=== PATIENT | female | born 1950 | race Caucasian/White ===

== ENCOUNTER → 2022-12-31 10:11 | Outpatient (BNVA) | payer OTHER, MEDICAID, SELFPAY | PROVIDERS: PCP Family Medicine; Visit Provider Anesthesiology Pain Medicine | DX: R10.2 Pelvic and perineal pain (principal); Z98.1 Arthrodesis status | CPT/HCPCS: 72170 ==

== ENCOUNTER → 2023-06-15 11:24 | Outpatient (BNVA) | payer OTHER, MEDICAID, SELFPAY | PROVIDERS: PCP Family Medicine; Visit Provider Family Medicine | DX: M19.90 Unspecified osteoarthritis, unspecified site (principal); R10.9 Unspecified abdominal pain; B88.0 Other acariasis; M54.50 Low back pain, unspecified; G89.29 Other chronic pain; F32.0 Major depressive disorder, single episode, mild; I10 Essential (primary) hypertension; G62.9 Polyneuropathy, unspecified; J44.9 Chronic obstructive pulmonary disease, unspecified; F11.90 Opioid use, unspecified, uncomplicated; F17.200 Nicotine dependence, unspecified, uncomplicated; Z71.6 Tobacco abuse counseling; M65.311 Trigger thumb, right thumb; M65.312 Trigger thumb, left thumb; Z79.899 Other long term (current) drug therapy | CPT/HCPCS: 81000 ==

== ENCOUNTER → 2023-09-25 16:01 | Outpatient (BNVA) | payer OTHER, MEDICAID, SELFPAY | PROVIDERS: PCP Family Medicine; Visit Provider Family Medicine | DX: I10 Essential (primary) hypertension (principal) | CPT/HCPCS: 80053; 80061; 84443; 85025 ==

== ENCOUNTER → 2023-11-06 13:03 | Outpatient (BNVA) | payer MEDICARE, MEDICAID, SELFPAY | PROVIDERS: PCP Family Medicine; Referring Provider Dermatology; Visit Provider Orthopaedic Surgery | DX: M54.9 Dorsalgia, unspecified (principal); M48.062 Spinal stenosis, lumbar region with neurogenic claudication; G89.29 Other chronic pain; M54.50 Low back pain, unspecified | CPT/HCPCS: 72100; 99204 ==

== ENCOUNTER 2023-12-15 13:46 | Outpatient (CLI) | payer MEDICARE, MEDICAID, SELFPAY ==
--- NOTE | 2023-12-15 14:00 | MR_ITS ---
WS: [id number] MRI LUMBAR SPINE NONCONTRAST TECHNIQUE: Sagittal T1, T2 and STIR imaging. Axial T1 and T2 imaging. CLINICAL INFORMATION: back pain COMPARISON: None. FINDINGS: Mild central canal stenosis cervical spine secy imaging at C5-C6. 5 nonrib-bearing lumbar vertebral bodies on the prior radiograph. Nonrib-bearing vertebral bodies con sidered L1-L5 for the purposes of this dictation. Only 11 thoracic type vertebral bodies if counting performed from the craniocervical junction. Pedicle screw fixation L4-S1 with interconnecting rods. Disc bulging worse at L3-4. L1-L2: Mild facet arthropathy. Spinal canal and foramen are patent. L2-L3: Slight retrolisthesis. Mild annular bulging. Moderate facet arthropathy. Mild canal and forame n are patent. L3-L4: Disc bulge with moderate central canal stenosis. Impingement traversing L4 nerve roots bilater ally. Moderate facet arthropathy with small facet effusions. Mild bilateral foraminal narrowing. Slig ht retrolisthesis L3 on L4 L4-L5: Mild annular bulging. Laminectomy defects. Pedicle screw fixation. Spinal canal and foramen ar e patent. L5-S1: Pedicle screw fixation. Laminectomy defects. Spinal canal and foramen are patent. Visualized pelvic bony structures: Normal. Paravertebral soft tissues: Normal. IMPRESSION: 1. Prior pedicle screw fixation L4-S1. 2. Moderate central canal stenosis L3-4 due to central disc bulging in combination with facet arthro nadya and ligamentum flavum hypertrophy. Impingement of traversing L4 nerve roots bilaterally. Mild b ilateral foraminal narrowing. 3. Spinal canal decompression at L4-L5 and L5-S1.
== END 2023-12-15 13:47 | disposition home or self-care (01) ==
LOC: RAD 13:47
PROVIDERS: PCP Family Medicine; Visit Provider Orthopaedic Surgery
DX: M48.061 Spinal stenosis, lumbar region without neurogenic claudication (principal); M51.36 Other intervertebral disc degeneration, lumbar region; G89.29 Other chronic pain
CPT/HCPCS: 72148

== ENCOUNTER → 2024-01-14 14:10 | Outpatient (BNVA) | payer MEDICARE, MEDICAID, SELFPAY | PROVIDERS: PCP Family Medicine; Visit Provider Orthopaedic Surgery | DX: M54.9 Dorsalgia, unspecified (principal); M48.062 Spinal stenosis, lumbar region with neurogenic claudication | CPT/HCPCS: 80053; 81001; 85025; 99214 ==

== ENCOUNTER → 2024-01-22 09:33 | Outpatient (BNVA) | payer MEDICARE, MEDICAID, SELFPAY | PROVIDERS: PCP Family Medicine; Visit Provider Family Medicine | DX: Z01.818 Encounter for other preprocedural examination (principal) | CPT/HCPCS: 81003; 93005 ==

== ENCOUNTER 2024-02-05 09:17 | Day surgery (SDC) | payer MEDICARE, MEDICAID, SELFPAY ==
[2024-02-05] VITALS (11 sets, daily range): BP systolic 104–181; BP diastolic 55–110; PULSE 77–98; RESP 12–20; TEMP 36.1–36.8; O2SAT 93–100; BMI 32.1
--- NOTE | 2024-02-05 10:11 | ANES.PREANE2 ---
Pre-Anesthetic Assessment Height/Weight: Height 1.55 m Weight 77.111 kg Temp Pulse Resp BP O2 Del Method 98.2 F 77 18 181/94 Room Air 02/05/24 09:34 02/05/24 09:34 02/05/24 09:34 02/05/24 09:34 02/05/24 09:57 Preop Diagnosis: Lumbar stenosis with neurogenic claudication Operation Date: 02/05/24 10:55 Proposed Procedures p L3-4 Lumbar Spine Decompression(Right) - Cachorro Og, Familial anesthetic complications: None Was Beta Raphael taken within 24 hours: N/A Was Clonidine taken within 24 hours: N/A Last intake: Intake Last Liquid Date 02/04/24 Last Liquid Time 23:00 Last Solid Date 02/04/24 Last Solid Time 23:00 Social Tobacco and No alcohol Exam alert, oriented x 3, clear to auscultation bilaterally and regular rate & rhythm Airway Mallampati: Class I Dentition: chipped Pulmonary Chronic Obstructive Pulmonary Disease CV/HEM Hypertension Anesthetic Plan ASA status: 3 Anesthesia: General Risk of > 500 ml blood loss (7ml/kg in children): No Medications/Allergies Home Medications Medication Instructions Recorded Confirmed Last Taken Type albuterol sulfate 0.63 mg/3 mL 0.63 mg inhalation QID PRN sob 11/17/22 02/05/24 02/04/24 History solution for nebulization cetirizine 10 mg capsule (All Day 10 mg PO DAILY PRN allergy 11/17/22 02/05/24 02/04/24 Rx Allergy (cetirizine)) symptoms #30 caps olopatadine 0.1 % eye drops 1 drp ophthalmic (eye) BID #5 mL 11/17/22 02/05/24 02/05/24 Rx omega 3-yec-jgm-fish oil 60 mg-90 1 cap PO DAILY 03/02/23 02/05/24 01/21/24 History mg-500 mg capsule (Fish Oil) triamcinolone acetonide 0.5 % 1 applic topical DAILY PRN skin 06/15/23 02/05/24 Unknown Rx topical cream #15 grams losartan 100 mg tablet 100 mg PO DAILY #90 tabs 08/28/23 02/05/24 02/04/24 Rx fluticasone propionate 50 2 spray intranasal DAILY #16 grams 0102/05/24 02/04/24 Rx mcg/actuation nasal spray,suspension (Flonase Allergy Relief) albuterol sulfate 90 mcg/actuation See Rx Instructions .Route 11/13/23 02/05/24 Unknown Rx aerosol inhaler .COMPLEX #8.5 ea lidocaine 4 % topical patch 1 patch topical DAILY PRN pain #30 11/17/23 02/05/24 02/04/24 Rx (Salonpas (lidocaine)) ea amlodipine 5 mg tablet 5 mg PO DAILY #90 tabs 12/02/23 02/05/24 02/04/24 Rx hydrocodone 10 mg-acetaminophen 1 tab PO Q8H PRN pain 30 days #90 01/11/24 02/05/24 02/04/24 Rx 325 mg tablet tabs tiotropium 2.5 mcg-olodaterol 2.5 2 puff inhalation DAILY #4 grams 01/13/24 02/05/24 02/05/24 Rx mcg/actuation mist for inhalation (Stiolto Respimat) Allergies Allergy/AdvReac Type Severity Reaction Status Date / Time aspirin Allergy Intermediate hives Verified 01/22/24 09:39 bupropion [From Wellbutrin] Allergy Intermediate facial rash Verified 01/22/24 09:39 shrimp Allergy Intermediate hives Verified 01/22/24 09:39 PFSH Anesthesia Medical History COPD (chronic obstructive pulmonary disease) Bulging discs Hypertension Rib cage dysfunction Surgical History History of back surgery Family History Sister Cancer unknown Mother Cancer breast Sister Cancer breast Other Diabetes Hyperlipidemia Hypertension Lung disease Denies family history of CAD (coronary artery disease) Clotting disorder Dementia Psychiatric illness Chronic kidney disease (CKD) Anesthesia complication Bleeding disorder Stroke Social History Smoking and tobacco/nicotine status: current every day tobacco/nicotine user cigarettes Packs smoked per day: 0.75 Alcohol intake: never Substance/Drug Use: never Lives independently: Yes Marital status: / Number of children: 5 Current occupational status: disabled Special alex needs: No Agree to transfusion: Yes Data Anesthesia Cardiac Studies: No Data to Display
--- NOTE | 2024-02-05 10:22 | W.PM.OPSUD ---
Surgery/Procedure H&P Update DATE OF PROCEDURE: February 05, 2024 DATE H&P PERFORMED: 01/22/24 H&P UPDATE INFORMATION: I have reviewed H&P completed within last 30 days, I have examined patient prior to procedure and No changes to prior documentation PREOP DIAGNOSIS: Lumbar stenosis with neurogenic claudication PLANNED PROCEDURE: Operation Date: 02/05/24 10:55 Proposed Procedures p L3-4 Lumbar Spine Decompression(Right) - Cachorro Og DO
[2024-02-05] MEDS: sodium chloride 0.9% 1,000 ML 30 ML IV (10:23)
[2024-02-05] MEDS: ceFAZolin 2,000 MG in sodium chloride 0.9% (plus) 50 ML 100 MG IV (10:52)
[2024-02-05] MEDS: lidocaine-epi 1% 20 mL INJ (11:19)
--- NOTE | 2024-02-05 12:06 | P.OP_ITS ---
Operative Report Date of procedure: February 05, 2024 Pre-op diagnosis: Lumbar stenosis with neurogenic claudication Post-op diagnosis: same Procedure done: L3-4 laminectomy with partial facetectomy Surgeon: Cachorro Og DO Estimated blood loss (mL): 5 Procedure: L3-4 laminectomy with partial facetectomy Patient is brought to the operative suite. After undergoing anesthesia they are placed in the prone position. All areas of impingement are well padded. Patient is then prepped and draped in the normal sterile fashion. A skin incision is made over the L3-4 level. This is confirmed under c-arm guidance. A series of dilators are passed and the tubular retractor is docked on the L3 lamina. A bovie is used to clear the soft tissue off the lamina and the L 3/4 facet joint. A high speed dheeraj is then used to perform the laminectomy and take down the medial aspect of the L 3/4 facet joint. A kerrison rongeure was then used to take down the remaining lamina and smooth the edge of the laminectomy up to the point where the ligamentum flavum attaches. Attention was then brought to the medial aspect of the facet joint. The remaining medial aspect of the superior and inferior aspect of the facet joint were taken down with the kerrison from the pedicle of L3 to L 4. The facet gordon int had significant hypertrophy. Attention was then brought to the Ligamentum Flavum. The ligament was taken down from the lamina of L3 to L4 and out medially to the remaining facet joint. The ligament was thick. The dura was then exposed. The dura was in good repair. The L3 nerve was then traced with a curette out the L3/4 foramen and found to be adequately decompressed. The L4 nerve was traced with a curette around the L4 pedicle. The lateral recess was opened with a kerrison helping to further decompress the L4 nerve. Wound is then irrigated copiously with saline and surgiflo is used to stop any bleeding. The tubular retractor is removed and the wound is closed with vicryl and monocryl suture. Glue is then used to protect the wound. A sterile dressing is then placed. Patient was then placed in the supine position and transferred to the PACU in stable condition.
[2024-02-05] MEDS: HYDROcodone-acetaminophen 10-325 mg Tablet 1 TAB PO (13:01)
--- NOTE | 2024-02-05 14:16 | XR_ITS ---
WS: [id number] Exam: XR lumbar spine 2-3V* [id number] Date/Time of Exam: 02/05/2024 2:16 PM Reason For Exam: KARO PICS Single limited AP image of the lumbar spine is presented. The image was obtained for intraoperative l ocalization purposes.
== END 2024-02-05 13:15 | disposition home or self-care (01) ==
PROVIDERS: PCP Family Medicine; Visit Provider Orthopaedic Surgery
PROC: (CPT 63005; principal; 2024-02-05 10:45)
DX: M48.062 Spinal stenosis, lumbar region with neurogenic claudication (principal); J44.9 Chronic obstructive pulmonary disease, unspecified; I10 Essential (primary) hypertension; F17.210 Nicotine dependence, cigarettes, uncomplicated
CPT/HCPCS: 63047; 72100; 76000; J0690; J1100; J2405; J2704; J2710; J3010; J3490; J7030

== ENCOUNTER → 2024-02-23 13:46 | Outpatient (BNVA) | payer MEDICARE, MEDICAID, SELFPAY | PROVIDERS: PCP Family Medicine; Visit Provider Orthopaedic Surgery | DX: Z98.890 Other specified postprocedural states (principal) | CPT/HCPCS: 99024 ==

== ENCOUNTER → 2024-05-12 13:00 | Outpatient (BNVA) | payer MEDICARE, MEDICAID, SELFPAY | PROVIDERS: PCP Family Medicine; Visit Provider Orthopaedic Surgery | DX: Z98.890 Other specified postprocedural states (principal); M48.062 Spinal stenosis, lumbar region with neurogenic claudication | CPT/HCPCS: 99024 ==

== ENCOUNTER → 2024-08-11 13:30 | Outpatient (BNVA) | payer MEDICARE, MEDICAID, SELFPAY | PROVIDERS: PCP Family Medicine; Visit Provider Orthopaedic Surgery | DX: Z48.89 Encounter for other specified surgical aftercare (principal) | CPT/HCPCS: 99213 ==

== ENCOUNTER 2024-11-18 12:26 | Outpatient (CLI) | payer MEDICARE, MEDICAID, SELFPAY ==
--- NOTE | 2024-11-18 12:40 | MM_ITS ---
WS: [id number] BILATERAL 3D TOMOSYNTHESIS DIGITAL SCREENING MAMMOGRAPHY WITH CAD CLINICAL INFORMATION: Screening HISTORY: Screening mammogram. No current complaints. Chronic inverted nipples COMPARISON: None. TECHNIQUE: Bilateral CC and MLO views. FINDINGS: Scattered fibroglandular densities bilaterally. No suspicious focal mass, asymmetry, calcifications, or architectural distortion. No evidence of malignancy. MM/MM [facility] tomosynthesis [id number] IMPRESSION: DENSITY: There are scattered areas of fibroglandular density. BI-RADS: 1 - Negative. FOLLOW UP: 1 Year Follow-up Recommend return to annual screening mammography.
== END 2024-11-18 12:27 | disposition home or self-care (01) ==
LOC: RAD 12:28
PROVIDERS: PCP Family Medicine; Visit Provider Family Medicine
DX: Z12.31 Encounter for screening mammogram for malignant neoplasm of breast (principal); R92.323 Mammographic fibroglandular density, bilateral breasts
CPT/HCPCS: 77063; 77067

== ENCOUNTER 2024-11-24 13:53 | Outpatient (CLI) | payer MEDICARE, MEDICAID, SELFPAY ==
--- NOTE | 2024-11-24 13:57 | MR_ITS ---
WS: [id number] MRI THORACIC SPINE WITHOUT CONTRAST TECHNIQUE: Sagittal T1, T2 and STIR imaging. Axial T2 imaging. Noncontrast imaging obtained. CLINICAL INFORMATION: SPONDYLOSIS W/O MYELOPATHY OR RADICULOPATHY COMPARISON: None. FINDINGS: Mild thoracic curve. Mild thoracic kyphosis. No acute compression fractures. Anterior hypertrophic changes. Cord signal is normal. No high-grade central canal stenosis. Shallow disc protrusion at T7-T8 with slight effacement of the ventral thecal sac. Slight contact of the thoracic cord. No high-grade central canal stenosis. Moderate facet arthropathy lower thoracic spine. Normal caliber thoracic aorta. LEFT thyroid nodule measuring 2.4 cm. This could followed up with ultrasound. MR/MR thoracic spin wo con* [id number] IMPRESSION: 1. Mild thoracic curve. Mild thoracic kyphosis. No acute compression fractures . 2. Shallow central protrusion at T7-T8 with slight effacement of the ventral t hecal sac with slight contact of the thoracic cord. Spinal canal is patent. 3. Anterior hypertrophic changes. 4. Moderate facet arthropathy lower thoracic spine.
== END 2024-11-24 13:54 | disposition home or self-care (01) ==
LOC: RAD 13:54
PROVIDERS: PCP Family Medicine; Visit Provider Anesthesiology
DX: M47.814 Spondylosis without myelopathy or radiculopathy, thoracic region (principal); M43.8X4 Other specified deforming dorsopathies, thoracic region; M40.294 Other kyphosis, thoracic region; M25.78 Osteophyte, vertebrae; M47.894 Other spondylosis, thoracic region; R93.7 Abnormal findings on diagnostic imaging of other parts of musculoskeletal system; E04.1 Nontoxic single thyroid nodule
CPT/HCPCS: 72146

== ENCOUNTER → 2025-01-10 09:15 | Outpatient (BNVA) | payer MEDICARE, MEDICAID, SELFPAY | PROVIDERS: PCP Family Medicine; Visit Provider Family Medicine | DX: I10 Essential (primary) hypertension (principal) | CPT/HCPCS: 80053; 80061; 84439; 84443; 85025 ==

== ENCOUNTER 2025-01-20 13:01 | Outpatient (CLI) | payer MEDICARE, MEDICAID, SELFPAY ==
--- NOTE | 2025-01-20 13:07 | XR_ITS ---
WS: [id number] DEXA (DUAL ENERGY X-RAY ABSORPTIOMETRY) Bone mineral density was performed using a [employer] machine. HISTORY: SCREENINng COMPARISON: None available. Left forearm BMD: 0.782 g/cm2. T score: -1.1 Z score: 1.1 Total hip BMD: Left: 0.825 g/cm2. T score: -1.5 Z score: -0.4 Right: 0.837 g/cm2. T score: -1.4 Z score: -0.3 10 year probability of a major osteoporotic fracture is 12.1%. XR/XR DEXA axial skeleton* [id number] IMPRESSION: OSTEOPENIA based upon the WHO classification for females.
--- NOTE | 2025-01-20 13:45 | CT_ITS ---
WS: [id number] LDCT LUNG CANCER SCREENING TECHNIQUE: Noncontrast CT of the chest with coronal and sagittal reformatted images. CLINICAL INFORMATION: screening COMPARISON: None. DLP: 73.47 mGy.cm DIvol: Mean CTDIvol: 1.40 (mGy) All CT scans at [facility] use at least one of these dose optimization techniques: automated exposure control; mA and/or kV adjustment per patient size (includes targeted exams where dose is matched to clinical indication); or iterative reconstruction. FINDINGS: Moderate chronic emphysematous changes. Subsegmental atelectasis in the lung bases. No suspicious pulmonary parenchymal abnormalities. Aortic calcification. Normal caliber thoracic aorta. Coronary calcification. Adrenal glands are normal. Small esophageal hiatal hernia.Mild thoracic kyphosis. Anterior hypertrophic changes thoracic spine. Enlarged nodular LEFT thyroid measuring up to 2.8 x 2.5 cm. This can be followed up with ultrasound. Benign lipomatous hypertrophy of the inter-atrial septum CT/CT lung screening [id number] IMPRESSION: Recommend thyroid ultrasound. Nodular enlarged LEFT thyroid. LUNG-RADS: 2-Benign Appearance or Behavior FOLLOW UP: 12 Month: Continue annual screening with LDCT
== END 2025-01-20 13:02 | disposition home or self-care (01) ==
PROVIDERS: PCP Family Medicine; Visit Provider Family Medicine
DX: Z12.2 Encounter for screening for malignant neoplasm of respiratory organs (principal); F17.219 Nicotine dependence, cigarettes, with unspecified nicotine-induced disorders; M85.80 Other specified disorders of bone density and structure, unspecified site; J43.8 Other emphysema; J98.11 Atelectasis; I70.0 Atherosclerosis of aorta; I25.10 Atherosclerotic heart disease of native coronary artery without angina pectoris; K44.9 Diaphragmatic hernia without obstruction or gangrene; M40.294 Other kyphosis, thoracic region; M89.38 Hypertrophy of bone, other site; E04.1 Nontoxic single thyroid nodule; R93.89 Abnormal findings on diagnostic imaging of other specified body structures
CPT/HCPCS: 71271; 77080

== ENCOUNTER → 2025-03-23 14:51 | Outpatient (BNVA) | payer MEDICARE, MEDICAID, SELFPAY | PROVIDERS: PCP Family Medicine; Visit Provider Podiatrist Foot & Ankle Surgery | DX: I73.9 Peripheral vascular disease, unspecified (principal); L60.3 Nail dystrophy; I87.2 Venous insufficiency (chronic) (peripheral); L60.0 Ingrowing nail | CPT/HCPCS: 11721; 99203 ==

== ENCOUNTER → 2025-05-31 12:57 | Outpatient (BNVA) | payer MEDICARE, MEDICAID, SELFPAY | PROVIDERS: PCP Family Medicine; Visit Provider Podiatrist Foot & Ankle Surgery | DX: I73.9 Peripheral vascular disease, unspecified (principal); L60.3 Nail dystrophy; I87.2 Venous insufficiency (chronic) (peripheral); L60.0 Ingrowing nail | CPT/HCPCS: 11721 ==

== ENCOUNTER → 2025-08-10 14:15 | Outpatient (BNVA) | payer MEDICARE, MEDICAID, SELFPAY | PROVIDERS: PCP Family Medicine; Visit Provider Podiatrist Foot & Ankle Surgery | DX: I73.9 Peripheral vascular disease, unspecified (principal); L60.3 Nail dystrophy; L60.8 Other nail disorders; I87.2 Venous insufficiency (chronic) (peripheral); L60.0 Ingrowing nail | CPT/HCPCS: 11721 ==